=== PATIENT | female | born 1960 | race American Indian/Alaskan Native ===

== ENCOUNTER 2021-07-16 07:44 | Day surgery (SDC) | payer BC ==
[2021-07-16 08:47] LABS: Basophils % (Auto) 0.5 % (0.0-1.8); Eosinophils # (Auto) 0.2 K/mm3 (0.0-0.4); Eosinophils % (Auto) 2.9 % (0.0-4.3); Hematocrit 41.3 % (30.3-42.9); Hemoglobin 13.8 gm/dl (10.1-14.3); Lymphocytes # (Auto) 2.1 K/mm3 (1.2-5.4); Lymphocytes % (Auto) 36.4 % (13.4-35.0); Mean Corpuscular HGB Conc 33 % (30-34); Mean Corpuscular Volume 89 fl (79-97); Monocytes # (Auto) 0.5 K/mm3 (0.0-0.8); Monocytes % (Auto) 8.3 % (0.0-7.3); Platelet Count 162 K/mm3 (140-440); Red Blood Count 4.66 M/mm3 (3.65-5.03); Red Cell Distribution Width 13.9 % (13.2-15.2)
[2021-07-16 09:00] LABS: INR 0.98 (0.87-1.13)
[2021-07-16] MEDS ORDERED: SODIUM CHLORIDE 0.9% 500 ML 500 ML IV SCH (09:00)
[2021-07-16] MEDS ORDERED: fentaNYL 100 MCG/2 ML INJ ONE (09:15)
[2021-07-16] MEDS ORDERED: HEPARIN/NS 5000 UNIT/500ML 1,000 ML IR ONE ×2 (09:15→11:06)
[2021-07-16] MEDS ORDERED: VERAPAMIL 5 MG/2 ML INJ ONE ×2 (09:16→11:06)
[2021-07-16] MEDS ORDERED: HEPARIN 10,000 UNITS/10 ML VIAL ONE ×2 (09:16→11:06)
[2021-07-16] MEDS ORDERED: LIDOCAINE (2%) 20 MG/1 ML VIAL 20 ML MDV INFILTRATI ONE ×3 (09:16→11:06)
[2021-07-16] MEDS ORDERED: NITROGLYCERIN SYRINGE 3 ML ONE ×2 (09:16→11:07)
[2021-07-16 09:23] LABS: BUN/Creatinine Ratio 18; Blood Urea Nitrogen 14 mg/dL (7-17); Calcium 9.8 mg/dL (8.4-10.2); Hemolysis Index 11
[2021-07-16] MEDS: MIDAZOLAM 2 MG/2 ML INJ ONE ×2 (10:03→10:31)
[2021-07-16] MEDS ORDERED: fentaNYL 100 MCG/2 ML INJ IV ONE (10:03)
--- NOTE | 2021-07-16 10:14 | Electrocardiograph Report ---
[facility] Test Date: 2021-07-16 Test Time: 08:56:33 Pat Name: MAYURI GRAYSON Department: Room: Gender: F Rental Sales Associate: CHAR : 1960 Requested By: MAGED WATTS Order Number: [id number] Reading MD: Cheryl Valentin Measurements Intervals [place] Rate: 69 P: 54 SC: 131 QRS: 44 QRSD: 81 T: 43 QT: 416 QTc: 444 Interpretive Statements Sinus rhythm No previous ECG available for comparison Electronically Signed On 07-16-2021 10:13:44 EDT by Cheryl Valentin
[2021-07-16] MEDS ORDERED: HEPARIN/ 0.45% NACL DRIP 25,000 UNIT/500 ML BAG ONE (10:15)
[2021-07-16] MEDS ORDERED: HEPARIN 10,000 UNITS/10 ML VIAL IV ONE (10:15)
[2021-07-16] MEDS: LIDOCAINE (2%) 20 MG/1 ML VIAL 20 ML MDV INFILTRATI ONE ×2 (10:20→10:30)
[2021-07-16] MEDS ORDERED: HEPARIN/NS 5000 UNIT/500ML 500 ML IR ONE ×2 (10:20→11:33)
[2021-07-16] MEDS ORDERED: EPINEPHrine 1 MG/10 ML SYRINGE ONE (11:05)
[2021-07-16] MEDS ORDERED: ATROPINE 0.1% (1 MG/10 ML) CARDIAC SYRINGE ONE (11:05)
[2021-07-16] MEDS ORDERED: LIDOCAINE PF 100 MG/5 ML (CARDIAC SYRINGE) IV ONE (11:05)
[2021-07-16] MEDS ORDERED: AMIODARONE 150 MG/3 ML INJ IV ONE (11:17)
[2021-07-16] MEDS ORDERED: SODIUM CHLORIDE 0.9% 1000 ML 1,000 ML ONE (11:19)
[2021-07-16] MEDS ORDERED: DOBUTamine/D5W 500 MG/250 ML 500 MG/250 ML BAG IV ONE (11:25)
[2021-07-16] MEDS ORDERED: DOPamine/D5W 800 MG/250 ML 800 MG/250 ML BAG IV ONE (11:27)
[2021-07-16] MEDS: PHENYLEPHRINE/NS 1,000 MCG/10 ML SYRINGE (OR USE) IV ONE ×2 (11:30→11:32)
--- NOTE | 2021-07-16 12:15 | Cardiac Catherization Report ---
DATE OF PROCEDURE: 07/16/2021 CARDIAC CATHETERIZATION REFERRING PHYSICIAN: Dr. Pamela Chairez. INDICATIONS FOR PROCEDURE: The patient is a very pleasant 60-year-old -[place] female, here for preoperative evaluation for carotid surgery, had an abnormal treadmill stress test with [address] depression. She is referred for preoperative left heart catheterization. She has been vaccinated in January with Moderna. Risks, benefits and alternatives discussed at length prior to obtaining informed consent. PROCEDURE IN DETAIL: The patient was brought to the laborer prestressed concrete in a postabsorptive state, prepped and draped in sterile fashion. Ruperto's test in right hand is normal. An 8 mL of 2% lidocaine used to anesthetize the right wrist. A standard 6-Egyptian hydrophilic sheath used to cannulate the right radial artery via modified Seldinger technique. All exchanges performed to exchange a J-tip guidewire. JL3.5 catheter was used to engage the left main. No dampening or ventricularization. Cineangiography performed in multiple projections. JR4 catheter used to cross the aortic valve under fluoroscopic guidance. Left ventriculography performed in the 30 KING and 30 MOHAWK projections via hand injection, catheter flushed. Manual pullback performed with continuous pressure monitoring. Catheter was used to engage the right coronary. No dampening or ventricularization. Cineangiography performed in multiple projections. DATA: Aortic pressure is 140/60, LV pressure is 140, LVEDP of 12 mmHg. Left ventriculography reveals normal systolic performance with estimated ejection fraction of 55-60%. No evidence of aortic stenosis. CORONARY ANATOMY: This is a right dominant system. Right coronary is a moderate sized vessel, courses AV groove, distally bifurcates in the posterior and posterolateral branches. There is a discrete 70% stenosis in the mid right coronary. Left main with an ulcerated 99% distal stenosis. There is ROWAN 3 flow throughout. The circumflex otherwise is without significant disease. LAD is otherwise without significant disease. Left heart reveals normal systolic performance. Estimated fraction 55-60%. No evidence of aortic stenosis. Given these findings, IV heparin started, intraaortic balloon pump was placed via the left femoral artery. The patient likely has PAD, difficulty accessing the right. Right common femoral artery sheath placed. Intraaortic balloon pump placed under fluoroscopic guidance and left femoral artery and placed at 1:1, IV heparin continued. The patient is chest pain free, clinically and hemodynamically stable. ROWAN 3 flow throughout the coronary tree. CONCLUSIONS: 1. Severe 99% distal left main stenosis. 2. 70% mid right coronary stenosis. 3. Preserved left ventricular systolic performance, estimated ejection fraction of 55-60%. 3. No evidence of aortic stenosis. The patient is currently chest pain free. Intraaortic balloon pump in place. IV heparin in place, to be transferred for coronary bypass surgery. My findings and plan of care discussed at length with the patient and family via telephone. The patient will be transferred to Dr. España to [facility]. I directly supervised the administration of moderate sedation with fentanyl and Versed from 10:00 a.m. to 10:40 a.m. TID: [id number] RECEIPT: [id number] SBM/PRE
[2021-07-16] MEDS ORDERED: CLOPIDOGREL 300 MG TAB ONE (12:39)
[2021-07-16] MEDS ORDERED: ALUM-MAG HYDROXIDE-SIMETHICONE 200-200-20MG/5ML ORAL LIQD 30 ML ONE (12:39)
--- NOTE | 2021-07-16 13:06 | Cardiac Catherization Report ---
DATE OF PROCEDURE: 07/16/2021 INDICATIONS FOR REPEAT PROCEDURE: Please see my previous cardiac catheterization note from earlier this morning. The patient is a 60-year-old -[place] female, catheterized here for preoperative evaluation of left carotid, found to have 99% left main. She was started on IV heparin. Balloon pump placed. Transfer was arranged to [facility] for coronary bypass surgery. The patient suddenly developed tachycardia and severe tachypnea, heart rate in the 140s-150s. She was started on BiPAP, Respiratory, anesthesia as well as ER physician at bedside throughout. We regained access into the right radial artery in sterile fashion. JL3.5 guide used to engage the left main. The patient developed significant hypotension and bradycardia; epinephrine and atropine were given. The patient was again on BiPAP. There is ROWAN 1 flow in the LAD and thus I decided to proceed with stenting of the left main, although I realized it is high risk, I did not feel like there was an alternative here. We wired the LAD, unable to wire a hairpin turn of the circumflex acutely, balloon to cross the LAD with a 2.5 x 12 balloon restored flow. Again, unable to wire the circumflex. This was a [place] wire used. Eventually stented with a Resolute 3.0 x 12 mm drug-eluting stent across the LAD ostium into the left main, postdilated at 10 RINKU for 15 seconds. Good angiographic result, ROWAN 3 flow. The patient with ROWAN 3 flow in the left circumflex as well. The patient started to clinically improve at this point, balloon pump augmented pressures are in the 100-110 range. The patient's shortness of breath is improved. She is on BiPAP. Again, anesthesia was at bedside throughout. I do not believe the patient needs to be intubated. IV heparin given. Abnormal ACT is confirmed. We will load the patient with Plavix 600 mL. The patient had already been loaded with aspirin. IVUS was then performed. IVUS revealed a mildly under expanded stent. No dissection. At this point, I had a decision to make, whether to post-dilate the stent to 3.0 and jeopardize the circumflex or not post-dilate and as the patient has ROWAN 3 flow throughout and was chest pain free at this point and is much more stable, I decided for the latter given that I had significant trouble wiring the hairpin turns circumflex. Also discussed with Dr. España. We will go ahead and continue IV heparin, transfer the patient to [place] for consideration of urgent bypass. Stent is mildly under expanded, but ROWAN 3 flow throughout the left system is present and the patient is certainly clinically improved, but not out of the lowry. I had a long discussion with the patient's and daughter, explained all the findings and her sudden deterioration and stenting of the left main. I directly supervised the administration of moderate sedation in the second case at approximately 10:45 a.m., completed at 12:10 p.m. with fentanyl and Versed. CONCLUSIONS: 1. Acute occlusion of distal left main after diagnostic catheterization. 2. Successful emergent primary PCI of left main into LAD with excellent angiographic result, ROWAN 3 flow throughout the left system including the left circumflex. 3. 90 minutes of critical care time. 4. Intraaortic balloon pump in place at 1 to 1 with augmented blood pressure of 105-110 mmHg. The patient on low dose IV dobutamine. Continue IV heparin. ACT noted to be abnormal. The patient loaded with aspirin and Plavix. The patient was discussed at length with Dr. España, will be transferred urgently with a balloon pump, on IV heparin, chest pain free, clinically much more stable to [facility] for consideration of urgent CABG. Risk of transfer versus non-transfer was also discussed with family, they agreed to proceed with transfer. Obviously we will follow along. TID: [id number] RECEIPT: [id number] GEOVANNA/MATTI
--- NOTE | 2021-07-16 15:11 | Short Stay Summary ---
Short Stay Documentation Date of service: 07/16/21 - History H&P: obtained from office - Allergies and Medications Current Medications: Allergies No Known Allergies Allergy (Unverified 07/16/21 08:16) Home Medications Medication Instructions Recorded Confirmed Last Taken Type Aspirin [Adult Aspirin] 81 mg PO DAILY 07/16/21 07/16/21 07/16/21 08:45 History Atorvastatin (Nf) [Lipitor (Nf)] 10 mg PO QHS 07/16/21 07/16/21 07/15/21 History Losartan [Cozaar] 25 mg PO QDAY 07/16/21 07/16/21 07/15/21 History - Brief post op/procedure progress note Date of procedure: 07/16/21 Pre-op diagnosis: Abnormal Stress Post-op diagnosis: other (Occlucsion of Distal Left Main coronary artery) Anesthesia: local Estimated blood loss: minimal - Hospital course Hospital course: Patients first [facility] showed 99% occlusion of left main coronary artery. She was started on Heparin gtt and balloon pump was placed. Transfer was arranged to [place] for coronary bypass surgery. The patient developed tachypnea and tachycardia with rate into 140s-150s. Patient was started on Bipap. Patient underwent emergent PCI of left main into LAD. Intraaortic ballon pump was in place, patient started on low dose dobutamine, continued with heparin gtt, loaded with asa and Plavix. Patient then transported to [facility] for consideration of urgent CABG. - Disposition Condition at discharge: Fair Disposition: [address] [place] [address] - Discharge Diagnoses (1) Left coronary artery occlusion Status: Acute Short Stay Discharge Plan Additional Instructions: Patients first C showed 99% occlusion of left main coronary artery. She was started on Heparin gtt and balloon pump was placed. Transfer was arranged to [place] for coronary bypass surgery. The patient developed tachypnea and tachycardia with rate into 140s-150s. Patient was started on Bipap. Patient underwent emergent PCI of left main into LAD. Intraaortic ballon pump was in place, patient started on low dose dobutamine, continued with heparin gtt, loaded with asa and Plavix. Patient then transported to [facility] for consideration of urgent CABG. Follow up with: EDI PATEL MD [Primary Care Provider] - 7 Days
[2021-07-16 17:10] VITALS: BP 135/64
--- NOTE | 2021-07-18 13:21 | Electrocardiograph Report ---
[facility] Test Date: 2021-07-16 Test Time: 11:25:00 Pat Name: MAYURI GRAYSON Department: CATH RECOVERY Room: LAB 1 Gender: F Safety Analyst: ELEANOR : 1960 Requested By: MAGED WATTS Order Number: [id number] Reading MD: Cheryl Valentin Measurements Intervals [place] Rate: 64 P: 77 TN: 50 QRS: 70 QRSD: 82 T: 28 QT: 428 QTc: 442 Interpretive Statements Sinus rhythm Extensive baseline artifact, poor quality ECG Compared to ECG 07/16/2021 08:56:33 No significant change Electronically Signed On 07-18-2021 13:20:39 EDT by Cheryl Valentin
== END 2021-07-16 13:02 | disposition home or self-care (01) ==
LOC: CATHLABREC 07:44
PROVIDERS: ATTEND Internal Medicine
DX: R94.30 Abnormal result of cardiovascular function study, unspecified (principal); I10 Essential (primary) hypertension; E78.00 Pure hypercholesterolemia, unspecified; F17.210 Nicotine dependence, cigarettes, uncomplicated; Z79.82 Long term (current) use of aspirin; Z79.899 Other long term (current) drug therapy; Z98.890 Other specified postprocedural states
CPT/HCPCS: 33967; 36415; 80048; 85025; 85610; 85730; 92978; 93005; 93458; 94660; C1725; C1753; C1769; C1874; C1887; C1894; C9600; J0171; J0282; J0461; J1250; J1265; J1644; J2001; J2250; J2370; J3010; J7030; J7040; 92928; Q9967